=== PATIENT | male | born 1960 | race Caucasian/White ===

== ENCOUNTER 2023-05-22 00:15 | Emergency (ER) | payer OTHER ==
[2023-05-22] MEDS: Oxymetazoline 0.05% Nasal Spray 30 ML Bottle NAS ONE (00:27)
[2023-05-22] MEDS: Sodium Chloride 0.9% 1,000 ML IV ONE (01:30)
[2023-05-22 01:38] LABS: BASOPHILS PERCENT AUTO 0.3 % (0.2-1.2); EOSINOPHILS ABSOLUTE AUTO 0.1 x10^3/uL (0.0-0.5); EOSINOPHILS PERCENT AUTO 1.4 % (0.0-4.0); HEMATOCRIT 29.4 % (40.0-52.0); HEMOGLOBIN 10.3 g/dL (14.0-18.0); LYMPHOCYTES ABSOLUTE AUTO 2.4 x10^3/uL (1.0-4.8); LYMPHOCYTES PERCENT AUTO 33.2 % (25.0-50.0); MEAN CORPUSCULAR HEMOGLOBIN 34.6 pg (26.0-32.0); MEAN CORPUSCULAR VOLUME 98.7 fL (78.0-93.0); MONOCYTES ABSOLUTE AUTO 0.7 x10^3/uL (0.0-0.8); MONOCYTES PERCENT AUTO 9.6 % (2.0-11.0); NEUTROPHILS ABSOLUTE AUTO 3.9 x10^3/uL (1.8-7.7); NEUTROPHILS PERCENT AUTO 55.5 % (50.0-80.0); PLATELET COUNT,PLT 169 x10^3/uL (130-400); RED BLOOD CELL COUNT 2.98 x10^6/uL (4.5-6.0); WHITE BLOOD CELL COUNT,WBC 7.1 x10^3/uL (4.0-10.0)
[2023-05-22 01:52] VITALS: PULSE 73
[2023-05-22 01:57] LABS: A/G RATIO 1.06; ALBUMIN 3.4 g/dL (3.4-5.0); BILIRUBIN TOTAL 0.6 mg/dL (0.2-1.0); CALCIUM 8.7 mg/dL (8.5-10.1); CREATININE 0.9 mg/dL (0.70-1.30); EST CRCL DRUG DOSING (CG) 70.87 mL/min; POTASSIUM,K 3.8 mmol/L (3.5-5.1); PROTEIN TOTAL,TP 6.6 g/dL (6.4-8.2)
[2023-05-22 01:58] LABS: ANION GAP 13.8 mmol/L (5-15)
[2023-05-22 03:04] VITALS: BP 144/54
== END 2023-05-22 02:37 | disposition home or self-care (01) ==
LOC: VM.ED 00:15
DX: R04.0 Epistaxis (principal); Z87.891 Personal history of nicotine dependence; Z79.82 Long term (current) use of aspirin; Z79.899 Other long term (current) drug therapy; Z88.0 Allergy status to penicillin
CPT/HCPCS: 30903; 80053; 85025; 99283; A9270-GY; J7030

== ENCOUNTER 2023-05-23 12:39 | Emergency (ER) | payer OTHER ==
[2023-05-23 12:51] VITALS: BP 110/58; PULSE 89
== END 2023-05-23 13:13 | disposition home or self-care (01) ==
LOC: VM.ED 12:39
DX: R04.0 Epistaxis (principal); I25.2 Old myocardial infarction; Z95.1 Presence of aortocoronary bypass graft; Z79.899 Other long term (current) drug therapy; Z79.82 Long term (current) use of aspirin; Z88.0 Allergy status to penicillin
CPT/HCPCS: 30901; 99283